=== PATIENT | male | born 1950 | race Caucasian/White ===

== ENCOUNTER → 2024-05-27 08:07 | Outpatient (REF) | payer MEDICARE, OTHER, SELFPAY | LOC: RAD 08:07 | PROVIDERS: ATTENDING PHYSICIAN Family Medicine | DX: R74.8 Abnormal levels of other serum enzymes (principal) | CPT/HCPCS: 78306; A9503 ==

== ENCOUNTER 2024-06-17 21:32 | Emergency (ER) | payer MEDICARE, OTHER, SELFPAY ==
[2024-06-17 21:35] VITALS: BP 155/93
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
[2024-06-17 23:17] VITALS: BP 150/90
== END 2024-06-17 23:20 | disposition home or self-care (01) ==
LOC: EMR 21:32
PROVIDERS: EMERGENCY PHYSICIAN Emergency Medicine; FAMILY PHYSICIAN Family Medicine
DX: S52.592A Other fractures of lower end of left radius, initial encounter for closed fracture (principal); S52.692A Other fracture of lower end of left ulna, initial encounter for closed fracture; W01.0XXA Fall on same level from slipping, tripping and stumbling without subsequent striking against object, initial encounter
CPT/HCPCS: 99283; 29125; 73090; 73110

== ENCOUNTER → 2024-11-07 09:41 | Outpatient (REF) | payer MEDICARE, OTHER, SELFPAY ==
[2024-11-07 10:26] LABS: % Basophils 0.5 % (0-2); % Eosinophils 1.1 % (0-6); % Immature Granulocytes 0.2 % (0-0.5); % Lymphocytes 20.1 % (20.5-51.1); % Monocytes 9.7 % (1.7-9.3); % Neutrophils 68.4 % (42.2-75.2); Absolute Eosinophils 0.1 10^3/uL (0-0.7); Absolute Lymphocytes 1.1 10^3/uL (1.2-3.4); Absolute Monocytes 0.5 10^3/uL (0.1-0.6); Absolute Neutrophils 3.7 10^3/uL (1.4-6.5); Hematocrit 40.6 % (39.0-52.0); Hemoglobin 14.3 g/dL (13.0-18.0); Mean Corp Hgb Conc. 35.2 g/dL (33.0-37.0); Mean Corpuscular Hgb 30.8 pg (27.0-31.0); Mean Corpuscular Volume 87.3 fL (80.0-94.0); Mean Platelet Volume 10.4 fL (7.4-10.4); Nucleated Red Blood Cells % 0 % (-); Platelet Count 173 10^3/uL (130-400); Red Blood Cell Count 4.65 10^6/uL (4.70-6.10); Red Cell Dist. Width 12.6 % (11.5-14.5); White Blood Cell Count 5.5 10^3/uL (4.8-10.8)
[2024-11-07 10:57] LABS: Blood Urea Nitrogen 22 mg/dl (9-20); Calcium 9.8 mg/dl (8.4-10.2); Carbon Dioxide 24 mmol/L (22-30); Chloride 106 mmol/L (98-107); Glucose 98 mg/dl (70-99); Potassium 4.1 mmol/L (3.5-5.1); Sodium 138 mmol/L (135-145); eGFR > 60.00
== END ==
LOC: RCS 09:41
PROVIDERS: ATTENDING PHYSICIAN Orthopaedic Surgery; FAMILY PHYSICIAN Family Medicine
DX: Z01.818 Encounter for other preprocedural examination (principal)
CPT/HCPCS: 36415; 80048; 85025; 93005

== ENCOUNTER 2024-11-11 06:08 | Day surgery (SDC) | payer MEDICARE, OTHER, SELFPAY ==
[2024-11-11] VITALS (9 sets, daily range): BP systolic 113–158; BP diastolic 72–79; BMI 30.4
[2024-11-11] MEDS: CELEBREX 200 MG PO (08:30)
[2024-11-11] MEDS: TYLENOL 1000 MG PO (08:31)
[2024-11-11] MEDS: NORMOSOL-R/PLASMALYTE-A 1000 IV (08:31)
[2024-11-11] MEDS: EMEND 40 MG PO (09:06)
[2024-11-11] MEDS: DILAUDID 0.25 MG IV (13:09)
== END 2024-11-11 15:05 | disposition home or self-care (01) ==
LOC: SDS 06:08
PROVIDERS: ATTENDING PHYSICIAN Orthopaedic Surgery
DX: S52.692A Other fracture of lower end of left ulna, initial encounter for closed fracture (principal); V28.09XA Other motorcycle driver injured in noncollision transport accident in nontraffic accident, initial encounter
CPT/HCPCS: 25545; C1713

== ENCOUNTER → 2025-06-29 11:02 | Outpatient (REF) | payer MEDICARE, OTHER, SELFPAY | LOC: HWRCS 11:02 | PROVIDERS: FAMILY PHYSICIAN Family Medicine | DX: R01.1 Cardiac murmur, unspecified (principal) | CPT/HCPCS: 93306 ==